=== PATIENT | female | born 1985 | race Caucasian/White ===

== ENCOUNTER → 2020-11-09 15:31 | Outpatient (BNVA) | payer OTHER, SELFPAY | PROVIDERS: Family Provider Nurse Practitioner Family; PCP Family Medicine; Visit Provider Registered Nurse | DX: J06.9 Acute upper respiratory infection, unspecified (principal); R06.2 Wheezing; Z20.828 Contact with and (suspected) exposure to other viral communicable diseases | CPT/HCPCS: 87635 ==

== ENCOUNTER 2021-05-28 13:29 | Emergency (ER) | payer OTHER, SELFPAY ==
[2021-05-28 13:46] VITALS: BP 154/97; PULSE 79; RESP 18; TEMP 36.6; O2SAT 100; BMI 67.9
--- NOTE | 2021-05-28 17:33 | W.ED.WEAKNES ---
HPI - Weakness General: Chief complaint: Weakness Stated complaint: HOT FLASHES AND TINGLING FELT LIKE PASSING OUT Time Seen by Provider: 05/28/21 17:26 History of Present Illness: HPI Narrative: Patient states that she had a couple hot flashes discharge today she ate something felt a bit better she her diet is changed because she had some stomach issues she has an appointment with gastro here in a week. Feel a bit better presently denies shortness of breath fever chills or any other problem going on this week. No Covid exposure. Onset (ago): hour(s) Duration: intermittent and improved Associated symptoms: Reports no associated symptoms; Denies chest pain, chills, easy bruising, fever(s), headache(s), nausea or vomiting Review of Systems Narrative: 2 hot flashes today, did feel better after eating Const: Denies: fever(s), chills or body aches Eyes: Denies: change in vision or blurry vision ENMT: Denies: throat pain or nasal congestion Card: Denies: chest pain or dyspnea on exertion Resp: Denies: dyspnea, productive cough or non-productive cough GI: Denies: abdominal pain, nausea or vomiting Musc: Denies: extremity pain Skin/Breast: Denies: rash Neuro: Denies: headache(s) Psych: Denies: anxiety or depression Froilan/Lymph: Denies: easy bruising PFSH ED PFSH: Family History (Updated 11/09/20 @ 15:02 by Marisa Nunez LPN) Other Heart disease Hypertension Social History (Updated 11/09/20 @ 15:02 by Marisa Nunez LPN) Smoking and tobacco status: never smoked Alcohol intake: never Adopted: No Caregiver/support person: No Lives independently: No Household members: significant other and children service: No Current occupational status: employed History of recent travel: No Sexually active: Yes Current gender identity: Female Physical Exam Const: COMMON NORMALS: no acute distress, average body habitus and patient oriented x3 HENMT: COMMON NORMALS: normocephalic HEAD & SCALP: normal to inspection and normocephalic FACE & SINUS: normal facial exam Eye: COMMON NORMALS: conjunctivae normal GENERAL EYE: appearance normal, both eyes and all related structures CONJUNCTIVA: Yes conjunctivae normal Neck/C-Spine: COMMON NORMALS: no JVD Chest: COMMONS NORMALS: normal inspection of the chest Resp: COMMON NORMALS: normal respiratory effort and clear to auscultation bilaterally AUSCULTATION: clear to auscultation bilaterally Cardio: COMMON NORMALS: no JVD, regular rate and regular rhythm RATE: regular rate RHYTHM: regular rhythm GI: COMMON NORMALS: Normal to inspection, nondistended, normoactive bowel sounds present Extremity: COMMON NORMALS: normal to inspection and full ROM Neuro: COMMON NORMALS: patient oriented x3 Course Vital Signs: Vital signs: Vital Signs Temperature 98 F 05/28/21 13:46 Pulse Rate 77 05/28/21 18:08 Respiratory Rate 18 05/28/21 18:08 Blood Pressure 150/94 05/28/21 18:08 Pulse Oximetry 100 05/28/21 18:08 MDM - Weakness MDM Narrative: Medical decision making narrative: Hypoglycemia. Patient was given food here after labs were ordered done showed there was no concerns besides her blood sugar being about 90 which she says it runs up and 100 usually. Patient felt much better after eating was discharged home. Lab Data: Labs: Lab Results 05/28/21 Range/Units 17:44 WBC 10.1 H (4.0-10.0) 10^3/ uL RBC 5.43 H (4.1-5.3) 10^6/u L Hgb 11.4 L (11.5-15.3) g/dL Hct 38.9 (37.0-47.0) % MCV 71.6 L (81-99) fL MCH 21.0 L (28.0-34.0) pg MCHC 29.3 L (30.0-36.0) g/dL RDW 18.8 H (12.1-15.1) % Plt Count 335 (130-400) 10^3/c mm MPV 9.8 (7.4-10.4) fL Neut % (Auto) 66.5 % Lymph % (Auto) 25.4 % Hubbard % (Auto) 6.5 % Eos % (Auto) 0.6 % Baso % (Auto) 0.8 % Neut # (Auto) 6.70 (1.8-7.7) 10^3/u L Lymph # (Auto) 2.6 (0.8-4.8) 10^3/u L Hubbard # (Auto) 0.7 (0.2-0.9) 10^3/u L Eos # (Auto) 0.1 (0.0-0.8) 10^3/u L Baso # (Auto) 0.1 (0.0-0.1) 10^3/u L Nucleated RBC % (a uto) 0 % Nucleated RBCs # 0.0 /100WBC Discharge Plan Discharge Patient Disposition: Home Clinical Impression: Hot flashes Condition: Stable Prescriptions: No Action lisinopril 20 mg tablet 20 mg PO DAILY RF: 0 azithromycin 250 mg tablet See Rx Instructions PO .COMPLEX Qty: 6 RF: 0 prednisone 20 mg tablet 20 mg PO BID 5 Days Qty: 10 RF: 0 Discharge Orders: Discharge ED (Routine); Ordered 05/28/21 Ordered By: Kem Hansen Referrals: Maxwell Bella, DO [Primary Care Provider] - Discharge Diet: Advance as tolerated Discharge Activity: Resume usual activity Activity Restrictions/Additional Instructions: Follow-up your family medical provider as scheduled. Make sure you get plenty of carbohydrates in your diet. You can buy a glucometer to store and check your blood sugars daily if you have concerns about ongoing low blood sugar symptoms. Coding Level of Care Code ED Rod And Tube Straightener for Chris Fwd Exam Comprehensive
[2021-05-28 17:48] LABS: Basophils # 0.1 10^3/uL (0.0-0.1); Basophils % 0.8 %; Eosinophils # 0.1 10^3/uL (0.0-0.8); Eosinophils % 0.6 %; Hematocrit 38.9 % (37.0-47.0); Hemoglobin 11.4 g/dL (11.5-15.3); Lymphocytes # 2.6 10^3/uL (0.8-4.8); Lymphocytes % 25.4 %; Mean Corpuscular HGB Conc 29.3 g/dL (30.0-36.0); Mean Corpuscular Volume 71.6 fL (81-99); Mean Platelet Volume 9.8 fL (7.4-10.4); Monocytes # 0.7 10^3/uL (0.2-0.9); Monocytes % 6.5 %; Neutrophils % 66.5 %; Nucleated Red Blood Cells % 0 %; Platelet Count 335 10^3/cmm (130-400); Red Blood Count 5.43 10^6/uL (4.1-5.3); Red Cell Distribution Width 18.8 % (12.1-15.1); White Blood Count 10.1 10^3/uL (4.0-10.0)
[2021-05-28 18:08] VITALS: BP 150/94; PULSE 77; RESP 18; O2SAT 100
[2021-05-29 07:19] LABS: Glucose Point of Care 92 mg/dL (70-110)
== END 2021-05-28 18:08 | disposition home or self-care (01) ==
PROVIDERS: Emergency Provider Nurse Practitioner Family; PCP Family Medicine
DX: N95.1 Menopausal and female climacteric states (principal)
CPT/HCPCS: 36416; 82962; 85025; 99282

== ENCOUNTER → 2024-04-16 15:33 | Outpatient (BNVA) | payer OTHER, SELFPAY | PROVIDERS: PCP Nurse Practitioner Family; Visit Provider Nurse Practitioner Family | DX: R19.7 Diarrhea, unspecified (principal); R11.2 Nausea with vomiting, unspecified | CPT/HCPCS: 87426 ==

== ENCOUNTER → 2025-04-01 13:48 | Outpatient (BNVA) | payer OTHER, SELFPAY | PROVIDERS: PCP Nurse Practitioner Family; Visit Provider Nurse Practitioner Family | DX: N92.6 Irregular menstruation, unspecified (principal); D64.9 Anemia, unspecified; Z79.899 Other long term (current) drug therapy; Z13.6 Encounter for screening for cardiovascular disorders; I10 Essential (primary) hypertension; E55.9 Vitamin D deficiency, unspecified | CPT/HCPCS: 80053; 80061; 82306; 82670; 82728; 83036; 83550; 84144; 84443; 85025 ==